=== PATIENT | female | born 1995 | race African-American/Black ===

== ENCOUNTER 2016-04-30 12:29 | Emergency (ER) | payer OTHER ==
[~2016-04-30] VITALS: Ht 182.9 cm; Wt 86.2 kg
[2016-04-30 12:34] VITALS: BP 126/71
[2016-04-30] MEDS ORDERED: ACETAMINOPHEN ES 500 MG TABLET ONE (12:57)
[2016-04-30] MEDS ORDERED: ACETAMINOPHEN 325 MG TABLET PO ONE (13:00)
== END 2016-04-30 14:01 | disposition home or self-care (01) ==
LOC: ER 12:31
DX: R50.9 Fever, unspecified (principal); J02.8 Acute pharyngitis due to other specified organisms
CPT/HCPCS: 36415; 86308; 87880; 99284; A4606; Z7610; 86403-TC

== ENCOUNTER 2016-05-03 13:06 | Emergency (ER) | payer OTHER ==
[~2016-05-03] VITALS: Ht 188 cm; Wt 95.3 kg
[2016-05-03 13:18] VITALS: BP 137/89
[2016-05-03] MEDS ORDERED: AMOX/CLAVULANATE 875 MG TABLET ONE (14:10)
[2016-05-03] MEDS ORDERED: DEXAMETHASONE 4 MG TABLET ONE (14:11)
[2016-05-03] MEDS ORDERED: DEXAMETHASONE 1 MG TABLET ONE (14:11)
[2016-05-03] MEDS ORDERED: AMOX/CLAVULANATE 875 MG TABLET PO ONE (14:30)
[2016-05-03] MEDS ORDERED: DEXAMETHASONE SOLN 1 MG/1 ML UDC PO ONE (14:30)
[2016-05-03] MEDS ORDERED: DEXAMETHASONE 1 MG TABLET PO ONE (14:30)
== END 2016-05-03 14:21 | disposition home or self-care (01) ==
LOC: ER 13:08
DX: J03.90 Acute tonsillitis, unspecified (principal)
CPT/HCPCS: 99283; A4606; J8540 ×2; Z7610

== ENCOUNTER 2018-10-02 21:08 | Emergency (ER) | payer OTHER ==
[~2018-10-02] VITALS: Ht 185.4 cm; Wt 106.6 kg
[2018-10-02 21:13] VITALS: BP 132/85
[2018-10-02] MEDS ORDERED: LORAZEPAM INJ 2 MG/ML VIAL ONE (22:20)
== END 2018-10-02 21:55 | disposition home or self-care (01) ==
LOC: ER 21:20
DX: O99.512 Diseases of the respiratory system complicating pregnancy, second trimester (principal); O21.9 Vomiting of pregnancy, unspecified; J02.9 Acute pharyngitis, unspecified; Z3A.18 18 weeks gestation of pregnancy
CPT/HCPCS: J2060